=== PATIENT | female | born 1990 | race Two or more races ===

== ENCOUNTER 2017-05-15 03:44 | Inpatient (IN) | payer SELFPAY ==
[~2017-05-15] VITALS: Ht 152.4 cm; Wt 73.0 kg
[2017-05-15] MEDS: D5%-LACTATED RINGERS 1,000 ML IV SCH ×2 (04:01→10:25)
[2017-05-15] MEDS ORDERED: OXYTOCIN 30U/ 0.9% NaCL 500ML 500 ML IV ONE (04:01)
[2017-05-15] MEDS: LACTATED RINGERS 1,000 ML IV SCH ×3 (04:10→22:29)
[2017-05-15 04:18] LABS: AMPHETAMINE SCREEN, URINE Negative (Negative); BARBITURATE SCREEN, URINE Negative (Negative); BENZODIAZEPINE SCREEN, URINE Negative (Negative); CANNABINOID SCREEN, URINE Negative (Negative); COCAINE SCREEN, URINE Negative (Negative); METHADONE SCREEN, URINE Negative (Negative); OPIATE SCREEN, URINE Negative (Negative)
[2017-05-15] MEDS ORDERED: OXYTOCIN 30U/ 0.9% NaCL 500ML 500 ML ONE (04:19)
[2017-05-15] MEDS ORDERED: NEWBORN KIT ONE (04:19)
[2017-05-15 04:28] VITALS: BP 120/84
[2017-05-15] MEDS ORDERED: FENTANYL PF 100 MCG/2ML IV PRN (04:30)
[2017-05-15] MEDS ORDERED: CALCIUM CARBONATE 500 MG TAB.CHEW PO PRN (04:30)
[2017-05-15] MEDS ORDERED: ONDANSETRON 2MG/ML, 2ML IVPush PRN (04:30)
[2017-05-15 05:28] LABS: BASOPHILS # (AUTO) 0.04 x10^3/uL (0-0.1); BASOPHILS % (AUTO) 0 % (0-1); EOSINOPHILS # (AUTO) 0.08 x10^3/uL (0-0.4); EOSINOPHILS % (AUTO) 1 % (1-7); LYMPHOCYTES # (AUTO) 2.52 x10^3/uL (1-3.4); LYMPHOCYTES % (AUTO) 21 % (22-44); MD NO; MEAN CORPUSCULAR HEMOGLOBIN 30.5 pg (27.0-34.8); MEAN CORPUSCULAR HGB CONC 33.3 g/dL (32.4-35.8); MEAN CORPUSCULAR VOLUME 91.4 fL (80-100); MEAN PLATELET VOLUME 8.3 fL (7.4-10.4); MONOCYTES # (AUTO) 0.68 x10^3/uL (0.2-0.8); MONOCYTES % (AUTO) 6 % (2-9); NEUTROPHILS # (AUTO) 8.45 x10^3/uL (1.8-6.8); NEUTROPHILS % (AUTO) 72 % (42-75); PLATELET COUNT 272 x10^3/uL (130-400); RED CELL DISTRIBUTION WIDTH 14.7 % (9.6-15.2)
[2017-05-15] MEDS ORDERED: FENTANYL PF 100 MCG/2ML ONE ×4 (06:44→20:20)
[2017-05-15] MEDS: FENTANYL PF 100 MCG/2ML IVPush PRN ×3 (06:47→13:55)
[2017-05-15] MEDS ORDERED: MISOPROSTOL 200 MCG TABLET ONE (07:22)
[2017-05-15] MEDS ORDERED: LIDOCAINE 1%, 10ML ONE (08:19)
[2017-05-15] MEDS ORDERED: ONDANSETRON 2MG/ML, 2ML ONE (10:40)
[2017-05-16] MEDS: OXYTOCIN 30U/ 0.9% NaCL 500ML 500 ML IV SCH ×5 (01:33→21:33)
[2017-05-16] MEDS ORDERED: IBUPROFEN 600 MG TABLET ONE (01:37)
[2017-05-16] MEDS: IBUPROFEN 600 MG TABLET PO PRN ×3 (01:38→21:55)
[2017-05-16] MEDS ORDERED: OXYTOCIN 30U/ 0.9% NaCL 500ML 500 ML ONE (01:51)
[2017-05-16] MEDS ORDERED: MAGNESIUM HYDROXIDE 8%, 30ML UDC PO PRN (02:00)
[2017-05-16] MEDS ORDERED: CALCIUM CARBONATE 500 MG TAB.CHEW PO PRN (02:00)
[2017-05-16] MEDS ORDERED: OXYcodone/APAP 5/325MG TABLET PO PRN ×2 (02:00)
[2017-05-16] MEDS ORDERED: MISOPROSTOL 200 MCG TABLET PR PRN (02:00)
[2017-05-16] MEDS ORDERED: ONDANSETRON 2MG/ML, 2ML IV PRN (02:00)
[2017-05-16] MEDS ORDERED: DIPH,PERTUSS(ACELL),TET VAC/PF NC IM-VACC PRN (02:00)
[2017-05-16] MEDS ORDERED: ACETAMINOPHEN 325 MG TABLET PO PRN ×2 (02:00)
[2017-05-16] MEDS ORDERED: OXYTOCIN 10 UNITS/ML, 1ML IM PRN (02:00)
[2017-05-16 02:45] VITALS: BP 100/65
[2017-05-16 06:20] VITALS: BP 91/58
[2017-05-16] MEDS: LACTATED RINGERS 1,000 ML IV SCH (06:29)
[2017-05-16 08:30] VITALS: BP 93/56
[2017-05-16] MEDS: PRENATAL VIT/IRON/FA 1 EACH TABLET PO SCH (08:51)
[2017-05-16] MEDS: DOCUSATE 100 MG CAPSULE PO PRN ×2 (08:51→21:55)
[2017-05-16 09:20] LABS: MEAN CORPUSCULAR HEMOGLOBIN 30.5 pg (27.0-34.8); MEAN CORPUSCULAR HGB CONC 33.4 g/dL (32.4-35.8); MEAN CORPUSCULAR VOLUME 91.4 fL (80-100); MEAN PLATELET VOLUME 7.7 fL (7.4-10.4); PLATELET COUNT 215 x10^3/uL (130-400); RED BLOOD COUNT 2.53 x10^6/uL (3.82-5.3)
[2017-05-16 09:43] LABS: MD YES
[2017-05-16 09:45] LABS: ANISOCYTOSIS 1+; BANDS%(MANUAL) 12 % (0-7); LYMPH#(MANUAL) 2.56 x10^3/uL (1-3.4); LYMPHS% (MANUAL) 14 % (22-44); POLYCHROMASIA 1+; SEG#(MANUAL) 13.54 x10^3/uL (1.8-6.8); SEGS% (MANUAL) 74 % (42-75)
[2017-05-16 09:46] LABS: <PLATELET ESTIMATE> ADEQUATE; <PLT MORPHOLOGY> NORMAL PLT MORPH
[2017-05-16 12:30] VITALS: BP 95/52
[2017-05-16 14:45] VITALS: BP 90/58
[2017-05-16 19:50] VITALS: BP 94/52
[2017-05-16] MEDS ORDERED: FLU VACC QS2017-18 (36MOS+) UP/PF 0.5 ML IM-VACC ONE (20:00)
[2017-05-17] VITALS (11 sets, daily range): BP systolic 90–108; BP diastolic 57–73
[2017-05-17 06:09] LABS: MEAN CORPUSCULAR HEMOGLOBIN 30.6 pg (27.0-34.8); MEAN CORPUSCULAR HGB CONC 33.1 g/dL (32.4-35.8); MEAN CORPUSCULAR VOLUME 92.6 fL (80-100); MEAN PLATELET VOLUME 8.2 fL (7.4-10.4); PLATELET COUNT 209 x10^3/uL (130-400); RED CELL DISTRIBUTION WIDTH 14.7 % (9.6-15.2)
[2017-05-17 06:38] LABS: MD YES
[2017-05-17 06:40] LABS: BAND#(MANUAL) 0.52 x10^3/uL; BANDS%(MANUAL) 4 % (0-7); EOS#(MANUAL) 0.39 x10^3/uL (0.0-0.4); EOS% (MANUAL) 3 % (1-7); LYMPH#(MANUAL) 3.41 x10^3/uL (1-3.4); LYMPHS% (MANUAL) 26 % (22-44); MONOS#(MANUAL) 0.26 x10^3/uL (0.3-2.7); MONOS% (MANUAL) 2 % (2-9); SEG#(MANUAL) 8.52 x10^3/uL (1.8-6.8); SEGS% (MANUAL) 65 % (42-75)
[2017-05-17 06:41] LABS: <PLATELET ESTIMATE> ADEQUATE; <PLT MORPHOLOGY> NORMAL PLT MORPH; ANISOCYTOSIS 1+; POLYCHROMASIA 1+
[2017-05-17] MEDS: OXYTOCIN 30U/ 0.9% NaCL 500ML 500 ML IV SCH (07:33)
[2017-05-17] MEDS: PRENATAL VIT/IRON/FA 1 EACH TABLET PO SCH (09:00)
[2017-05-17] MEDS: IBUPROFEN 600 MG TABLET PO PRN (15:05)
[2017-05-17 18:01] LABS: MEAN CORPUSCULAR HGB CONC 33.5 g/dL (32.4-35.8); MEAN CORPUSCULAR VOLUME 92.5 fL (80-100); PLATELET COUNT 205 x10^3/uL (130-400); RED BLOOD COUNT 3.23 x10^6/uL (3.82-5.3); RED CELL DISTRIBUTION WIDTH 14.2 % (9.6-15.2)
[2017-05-17 19:07] LABS: BASOPHILS # (AUTO) 0.03 x10^3/uL (0-0.1); BASOPHILS % (AUTO) 0 % (0-1); EOSINOPHILS # (AUTO) 0.05 x10^3/uL (0-0.4); EOSINOPHILS % (AUTO) 0 % (1-7); LYMPHOCYTES # (AUTO) 2.54 x10^3/uL (1-3.4); LYMPHOCYTES % (AUTO) 19 % (22-44); MD SCAN; MONOCYTES # (AUTO) 0.65 x10^3/uL (0.2-0.8); MONOCYTES % (AUTO) 5 % (2-9); NEUTROPHILS # (AUTO) 9.93 x10^3/uL (1.8-6.8); NEUTROPHILS % (AUTO) 75 % (42-75)
[2017-05-18] MEDS ORDERED: IBUP-1222 PO (07:12)
[2017-05-18] MEDS ORDERED: DOCU-131 PO (07:17)
[2017-05-18] MEDS ORDERED: FERR325T5 PO (07:18)
[2017-05-18] MEDS ORDERED: D5%-LACTATED RINGERS 1,000 ML IV SCH (08:00)
[2017-05-18 08:20] VITALS: BP 101/69
[2017-05-18] MEDS: DOCUSATE 100 MG CAPSULE PO PRN (11:35)
[2017-05-18] MEDS: PRENATAL VIT/IRON/FA 1 EACH TABLET PO SCH (11:35)
[2017-05-18] MEDS: IBUPROFEN 600 MG TABLET PO PRN (11:35)
== END 2017-05-18 16:32 | disposition home or self-care (01) | DRG 775 ==
LOC: LDOP 03:44 → LDIP 04:19 → 2NW 05-16 02:20
PROVIDERS: ADMIT Obstetrics & Gynecology; ATTEND Obstetrics & Gynecology
PROC: 10D07Z6 Extraction of Products of Conception, Vacuum, Via Natural or Artificial Opening (ICD-10-PCS; principal; 2017-05-15)
PROC: 0KQM0ZZ Repair Perineum Muscle, Open Approach (ICD-10-PCS; 2017-05-15)
PROC: 10907ZC Drainage of Amniotic Fluid, Therapeutic from Products of Conception, Via Natural or Artificial Opening (ICD-10-PCS; 2017-05-15)
PROC: 0W8NXZZ Division of Female Perineum, External Approach (ICD-10-PCS; 2017-05-15)
PROC: 30233N1 Transfusion of Nonautologous Red Blood Cells into Peripheral Vein, Percutaneous Approach (ICD-10-PCS; 2017-05-17)
DX: O63.1 Prolonged second stage (of labor) (principal); D62 Acute posthemorrhagic anemia; Z37.0 Single live birth; O70.1 Second degree perineal laceration during delivery; O90.81 Anemia of the puerperium; Z3A.39 39 weeks gestation of pregnancy; Z23 Encounter for immunization
CPT/HCPCS: 36415; 80307; 85025; 86850; 86900; 86923; 90686; J2405; J3010; G0479; J2590; J7120; J7121; P9016